=== PATIENT | male | born 1975 | race Caucasian/White ===

== ENCOUNTER 2019-05-17 08:43 | Inpatient (IN) ==
[2019-05-17] MEDS ORDERED: KETOROLAC TROMETHAMINE 30 MG/ML VIAL IV ONE (09:54)
[2019-05-17] MEDS ORDERED: DIATRIZOATE MEGLUMINE, SODIUM 30 ML BTL PO ONE (09:54)
[2019-05-17] MEDS ORDERED: NORMAL SALINE 1,000 ML IV ONE ×3 (09:54→15:55)
--- NOTE | 2019-05-17 10:00 | ERNOTE ---
Abdominal HPI - Narrative Date of Service: 05/17/19 - General Chief Complaint: Abdominal Pain Time Seen by Provider: 05/17/19 09:49 Source: patient Exam Limitations: no limitations - Immun/Allergies/Home Medications Immunizatons: IMMUNIZATION HX Immunizations Up to Date Yes History of Influenza Vaccine No Hx Pneumococcal Vaccination No Allergies/Adverse Reactions: Allergies No Known Allergies Allergy (Verified 02/22/19 14:39) Home Medications: HOME MEDICATIONS ibuprofen 800 mg tablet 800 mg PO TID PRN #90 tab 01/22/19 [Last Taken Unknown] - History of Present Illness Narrative: Patient presents to the ED for low abdominal pain. This started yesterday and has been persistent since. Low abdominal pain, left primarily. No CP or SOB. No nausea or vomiting. Has had a fever. Never had anything like this before. Has a hernia left but this is not specifically tender. No dysuria or hematuria. Has had diarrhea but non-bloody. No vomiting. Nothing seems to make this better or worse. Timing: constant Quality: moderate Activities at Onset: none Modifying Factors - (Improves): Present: other - nothing Modifying Factors - (Worsens): Present: other - nothing Associated Symptoms: Absent: diarrhea-gross blood, nausea, vomiting, shortness of breath Prior Abdominal Problems: Present: none Prior Treatment: Absent: recently seen Review of Systems - Review of Systems Constitutional: Present: fever EYE: Present: no symptoms reported ENT: Absent: sore throat Respiratory: Absent: shortness of breath Cardiology: Absent: chest pain Gastrointestinal/Abdominal: Present: See HPI Genitourinary: Absent: dysuria Neurological: Absent: weakness All Other Systems: All systems neg except as marked Medical History (Last Reviewed 05/17/19 @ 09:58 by John Muñoz MD) Diarrhea in adult patient (Acute) Hyperlipidemia Surgical History: Surgical History (Last Reviewed 05/17/19 @ 09:58 by John Muñoz MD) No pertinent past surgical history Family History: Family History (Last Reviewed 05/17/19 @ 09:58 by John Muñoz MD) Mother Diabetes Father Glaucoma CVA (cerebral vascular accident) Grandmother Cancer Social History: (Last Reviewed 05/17/19 @ 09:58 by John Muñoz MD) Social History: Marital status: lives independently: Yes household members: family number of children: 63 current occupational status: employed Highest education level completed: high school graduate Service: Yes branch: [employer] Tobacco: Smokeless tobacco user: chewing tobacco Alcohol: alcohol intake: current Alcohol type: wine, beer alcohol intake frequency: a few times a week Substance Use: substance use type: does not use Dietary Habits: caffeine: Yes caffeine comment: daily Type: coffee Physical Exam - Physical Exam General Appearance: Present: alert, no apparent distress Head Exam: Present: normal inspection, no evidence of injury Eye Exam: Normal inspection: bilateral, PERRL: bilateral Ears, Nose, Throat: Present: normal ENT inspection Neck: Present: normal inspection Respiratory: Present: no respiratory distress, normal breath sounds, no accessory muscle use, lungs clear Cardiovascular/Chest: Present: regular rate, rhythm, normal peripheral pulses Gastrointestinal/Abdominal: Present: normal bowel sounds, nondistended, soft, other - Diffuse low abdominal tenderness, left greater than rright, no peritoneal signs Male Genitals Exam: Present: normal genitalia, normal prostate, other - there is a small hernia left but this is not tender. No evidence of strangulated or incarcerated hernia. No testicular tenderness. No suggestion of torsion or scrotal mass/tenderness. Back Exam: Absent: CVA tenderness (R), CVA tenderness (L) Extremity Exam: Present: normal inspection, normal range of motion Neurological Exam: Present: alert, no motor/sensory deficits Skin Exam: Present: normal color, warm/dry Progress - Results and Orders Patient's Lab Results:: I have reviewed the patient's lab results. - Vital Signs Patient's Vital Signs:: I have reviewed the patient's vital signs. Vital Signs: Vital Signs 05/17/19 09:02 Temperature 38.1 C H Pulse Rate 81 Respiratory Rate 16 Blood Pressure 149/101 H O2 Sat by Pulse Oximetry 95 - CT/Ultrasound CT/Ultrasound Narrative: I reviewed the official radiology report for CT ABd/Pelvis. - Progress/Reassessment Chief Complaint: Abdominal Pain Progress Note-Subjective: 05/17/19 15:57 Patient had perforated diverticulititis and abnormal cecum. Given IV ABc. I spoke with Dr Guajardo then Dr Gaines. There was a question of who would admit so the patient had a prolonged ED stay. Dr Poole did see the patient at PCP request. Eventually admitted to Dr Guajardo. patient understands. Departure Clinical Impression: Abdominal pain, Diverticulitis, Diverticulitis of intestine with perforation, Abnormal CT of the abdomen - Departure Disposition: Still a patient Condition: Stable
[2019-05-17 10:09] LABS: Hematocrit 44.3 % (42.0-52.0); Mean Corpuscular Hemoglobin 29.1 pg (27-31); Mean Corpuscular Hgb Conc 33.9 g/dl (32-36); Mean Platelet Volume 9.3 fl (8-11.3); Neutrophil # 8.7 K/mm3 (1.3-6.0); Neutrophil % 79.8 % (42-75.0); Platelet Count 216 K/mm3 (150-450); Red Blood Count 5.15 M/mm3 (4.7-6.0); Red Cell Distribution Width 12.3 % (11.5-14.0); White Blood Count 10.9 K/mm3 (4.0-10.5)
[2019-05-17 10:30] LABS: Anion Gap 13.2 mmol/L (6.8-13.8); BUN/Creatinine Ratio 5.9 (9.0-21.6); Bilirubin, Total 0.9 mg/dL (0.0-1.1); Ca. Corrected For Albumin 8.6 mg/dL (8.4-10.2); Calcium * 8.9 mg/dL (7.9-10.9); Carbon Dioxide 28.7 mmol/L (24-32.6); Potassium 3.9 mmol/L (3.4-4.6); Total Protein 7.6 gm/dL (6.2-8.2)
[2019-05-17 12:12] LABS: Urine Bilirubin Negative (NEGATIVE); Urine Blood Negative /ul (NEGATIVE); Urine Ketone Negative (NEGATIVE); Urine Nitrite Negative (NEGATIVE); Urine Protein Negative (NEGATIVE); Urine Specific Gravity 1.015 SP.GR. (1.005-1.030); Urine Urobilinogen Normal (NORMAL)
[2019-05-17 12:30] LABS: Urine Appearance Clear (CLEAR); Urine Color Dark Yellow
[2019-05-17 12:31] LABS: Urine Bacteria None Seen; Urine RBC None Seen /hpf (0-5); Urine WBC None Seen /hpf (0-5)
[2019-05-17] MEDS ORDERED: LEVOFLOXACIN IN DEXTROSE 5 % 750 MG/150 ML BAG IV ONE (14:03)
[2019-05-17] MEDS ORDERED: metroNIDAZOLE/SODIUM CHLORIDE 500 MG/100 ML BAG IV SCH (14:15)
--- NOTE | 2019-05-17 16:28 | CONS ---
HPI - General Date of Service: 05/17/19 Source: patient, RN/MD, RN notes reviewed, old records Exam Limitations: no limitations - History of Present Illness Initial Comments: He began with vague lower abdominal discomfort last evening. The pain got more severe overnight. It hurt to cough removed. He presented to the emergency room today. His white blood cell count is elevated at 10,900. He has an elevated temperature. Timing/Duration: 24 hours Modifying Factors - (Worsens): Reports: movement Modifying Factors - (Improves): Reports: immobilization Associated Symptoms: other - He has felt warm Allergies/Adverse Reactions: Allergies No Known Allergies Allergy (Verified 02/22/19 14:39) Home Medications: Home Medications Medication Instructions Recorded Last Taken ibuprofen 800 mg tablet 800 mg PO TID PRN #90 tab 01/22/19 Unknown Review of Systems - Review of Systems Generalized/Overall Review: Absent: Chills, Fever EENTM: Present: No Symptoms Reported Respiratory: Present: No Symptoms Reported Cardiac: Present: No Symptoms Reported Abdominal: Present: Other - He started with vague lower abdominal pain which localized in the left lower quadrant. Hurts to cough or move Generally his bowels move about 3 times a day depending upon what he eats Genitourinary: Present: No Symptoms Reported Musculoskeletal: Present: No Symptoms Reported Neurological: Present: No Symptoms Reported Skin: Present: No Symptoms Reported Endocrine: Present: No Symptoms Reported Physical Examination - Exam Vital Signs: Vital Signs - Last Taken Temp 38.1 C H 05/17/19 16:07 Pulse 64 05/17/19 16:07 Resp 16 05/17/19 16:07 BP 142/88 H 05/17/19 16:07 Pulse Ox 97 05/17/19 16:07 O2 Oxygen Delivery Method Room Air Constitutional: Present: Alert, Oriented x3, Cooperative, Well developed, Well nourished, Mild distress ENT Exam: Present: normal ENT inspection Eye Exam: bilateral eye: normal inspection Neck: Present: full range of motion, normal inspection Respiratory: Present: no respiratory distress Cardiovascular/Chest: Present: regular rate, rhythm Abdomen: Present: other - His abdomen is protuberant "full" but soft. There is some tympany to percussion. There is some percussion tenderness in the left lower quadrant but not elsewhere in the abdomen. He does have moderate direct tenderness in the left lower quadrant with rebound. 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 There is also a filling defect in the cecum adjacent to the ileocecal valve. - Assessments/Findings (1) Abnormal CT of the abdomen Diagnosis(s): In talking to the patient, his mother had colon cancer at age 59 or 60. Her mother also had colon cancer. The patient's father has had colon cancer as well as one uncle or aunt The finding in the cecum may be related to the ileocecal valve, however with his significant family history of colon cancer he would have been considered for screening colonoscopy at age 39. Discussed this at length with him. He was given pamphlets on colonoscopy and diverticulosis. Would recommend that following discharge he be referred for a colonoscopy in 6 to 8 weeks after complete healing of the diverticulitis. Problem: Acute (2) Diverticulitis of intestine with perforation Diagnosis(s): The diverticulitis is associated with a microperforation. This is retroperitoneal and contained. Would recommend he be kept n.p.o. status except ice chips and any needed p.o. medication with IV hydration. Agree with Levaquin and Flagyl IV. Will follow the patient for daily exams. Would not start clear liquids until the patient is much less tender Would continue IV antibiotics until the patient is pain-free with a normal white blood cell count and benign exam. Would continue outpatient antibiotics for a full 2-week course Problem: Acute
[2019-05-17] MEDS ORDERED: FLU VACC QS2019-20(6MOS UP)/PF 60 MCG/0.5 ML SYRINGE IM ONE (17:00)
--- NOTE | 2019-05-17 17:53 | HP ---
Chief Complaint - Chief Complaint Date of Service: 05/17/19 Time of Service: 16:00 Chief Complaint: Left Lower Quadrant Abdominal Pain History of Present Illness: 43 y/o M with PMHX of Hyperlipidemia not requiring statin therapy presents to the ER with complaints of LLQ abdominal pain x 1 day. Patient states he felt he was coming down with small infection however pain progressively got worse overnight. On arrival to the ER, patient is hypertensive remaining Vital signs are stable. Labs are significant for mild leukocyotsis and CT abd/pelvis demonstrated Diverticulitis with perforation. Received a bolus of NS. On arrival to the floor, patient is resting comfortably. Denies pain or nausea. States last BM and flatus was last night. Discussed management with patient and at bedside. Voiced understanding and are agreeable with plan. Medical History (Last Reviewed 05/17/19 @ 16:22 by Brenda García RN) Diarrhea in adult patient (Acute) Hyperlipidemia Surgical History: Surgical History (Last Reviewed 05/17/19 @ 16:22 by Brenda García RN) No pertinent past surgical history Family History: Family History (Last Reviewed 05/17/19 @ 16:23 by Brenda García RN) Mother Diabetes Father CVA (cerebral vascular accident) Glaucoma Grandmother Cancer Social History: (Last Updated 05/17/19 @ 16:23 by Brenda García RN) Social History: Marital status: lives independently: Yes household members: family number of children: 2 current occupational status: employed Highest education level completed: high school graduate Service: Yes branch: [employer] Tobacco: Smokeless tobacco user: chewing tobacco Alcohol: alcohol intake: current Alcohol type: wine, beer alcohol intake frequency: a few times a week Substance Use: substance use type: does not use Dietary Habits: caffeine: Yes caffeine comment: daily Type: coffee Review Of Systems (GEN) - Review of Systems Generalized/Overall Review: Absent: Weakness, Chills, Fever, Diaphoresis Respiratory: Absent: Shortness of Breath Cardiac: Absent: Chest Pain, Edema Abdominal: Present: Abdominal Pain - LLQ. Absent: Nausea, Vomiting, Constipation Musculoskeletal: Absent: Joint Pain Neurological: Absent: Pre-existing Deficit Skin: Absent: Dryness Immunizations: IMMUNIZATION HX Immunizations Up to Date Yes History of Influenza Vaccine No Hx Pneumococcal Vaccination No Allergies/Adverse Reactions: Allergies Allergy/AdvReac Type Severity Reaction Status Date / Time No Known Allergies Allergy Verified 05/17/19 16:24 Home Medications: HOME MEDICATIONS ibuprofen 800 mg tablet 800 mg PO TID PRN #90 tab 01/22/19 [Last Taken Unknown] Exam - Exam Vital Signs: Vital Signs - Last Taken Temp 36.7 C 05/17/19 16:25 Pulse 71 05/17/19 16:25 Resp 16 05/17/19 16:25 BP 140/91 H 05/17/19 16:25 Pulse Ox 100 05/17/19 16:25 Constitutional: Present: Alert, Oriented x3, Cooperative, Well developed, No distress ENT Exam: Present: hearing grossly normal Eye Exam: bilateral eye: normal inspection, EOMI Neck: Present: non-tender, full range of motion, supple, normal inspection Respiratory: Present: lungs clear, normal breath sounds Cardiovascular/Chest: Present: normal peripheral pulses, regular rate, rhythm, no chest tenderness, no edema, no gallop, no JVD, no murmur Peripheral Pulses: dorsalis-pedis (R): 2+, dorsalis-pedis (L): 2+ Abdomen: Present: Normal bowel sounds, soft, tender - TTP OF LLQ Extremity: Present: normal range of motion, non-tender, normal inspection, no pedal edema, no calf tenderness, normal capillary refill Skin Exam: Present: normal color, warm/dry Neurologic: Present: alert, oriented x 3 Appearance: Present: appropriate appearance Eye contact: Present: cooperative, good eye contact, normal speech Thoughts: Present: normal thought pattern, no apparent hallucination, normal mood /affect Diagnostic Studies: Abnormal Lab Results 05/17/19 05/17/19 Range/Units 09:54 09:54 WBC 10.9 H (4.0-10.5) K/mm3 Neutrophils % 79.8 H (42-75.0) % Lymphocytes % 9.7 L (20-51) % Monocytes % 9.6 H (0.0-9) % Neutrophils # 8.7 H (1.3-6.0) K/mm3 Lymphocytes # 1.05 L (1.5-3.5) k/mm3 BUN/Creatinine Ratio 5.9 L (9.0-21.6) Laboratory Results WBC 10.9 K/mm3 (4.0-10.5) H 05/17/19 09:54 RBC 5.15 M/mm3 (4.7-6.0) 05/17/19 09:54 Hgb 15.0 gm/dL (13.5-18.0) 05/17/19 09:54 Hct 44.3 % (42.0-52.0) 05/17/19 09:54 MCV 86.0 fl (78-100) 05/17/19 09:54 MCH 29.1 pg (27-31) 05/17/19 09:54 MCHC 33.9 g/dl (32-36) 05/17/19 09:54 RDW 12.3 % (11.5-14.0) 05/17/19 09:54 Plt Count 216 K/mm3 (150-450) 05/17/19 09:54 MPV 9.3 fl (8-11.3) 05/17/19 09:54 Immature Gran % (Auto) 0.20 % (0.001-0.429) 05/17/19 09:54 Immature Gran # (Auto) 0.02 K/mm3 (0.000-0.0310) 05/17/19 09:54 Neutrophils % 79.8 % (42-75.0) H 05/17/19 09:54 Lymphocytes % 9.7 % (20-51) L 05/17/19 09:54 Monocytes % 9.6 % (0.0-9) H 05/17/19 09:54 Eosinophils % 0.4 % (0.0-3.0) 05/17/19 09:54 Basophils % 0.3 % (0.0-1.0) 05/17/19 09:54 Nucleated RBC % 0.0 k/mm3 (0-1) 05/17/19 09:54 Neutrophils # 8.7 K/mm3 (1.3-6.0) H 05/17/19 09:54 Lymphocytes # 1.05 k/mm3 (1.5-3.5) L 05/17/19 09:54 Monocytes # 1.0 k/mm3 (0.0-1.0) 05/17/19 09:54 Eosinophils # 0.0 k/mm3 (0.0-0.7) 05/17/19 09:54 Absolute Basophils 0.0 k/mm3 (0.0-0.1) 05/17/19 09:54 Sodium 139 mmol/L (132-142) 05/17/19 09:54 Plasma Sodium 139 mmol/L (130-142) 05/17/19 09:54 Potassium 3.9 mmol/L (3.4-4.6) 05/17/19 09:54 Chloride 101 mmol/L (97-106) 05/17/19 09:54 Carbon Dioxide 28.7 mmol/L (24-32.6) 05/17/19 09:54 Anion Gap 13.2 mmol/L (6.8-13.8) 05/17/19 09:54 BUN 6 mg/dL (6-23) D 05/17/19 09:54 Creatinine 1.02 mg/dL (0.4-1.4) 05/17/19 09:54 Est GFR (Non-Af Amer) 84 mL/min (60-130) 05/17/19 09:54 BUN/Creatinine Ratio 5.9 (9.0-21.6) L 05/17/19 09:54 Random Glucose 110 mg/dL (70-110) 05/17/19 09:54 Calcium 8.9 mg/dL (7.9-10.9) 05/17/19 09:54 Calcium Adj for Albumin 8.6 mg/dL (8.4-10.2) 05/17/19 09:54 Total Bilirubin 0.9 mg/dL (0.0-1.1) 05/17/19 09:54 AST 15 U/L (0-48) 05/17/19 09:54 ALT 19 U/L (19-67) 05/17/19 09:54 Alkaline Phosphatase 86 U/L (50-170) 05/17/19 09:54 Total Protein 7.6 gm/dL (6.2-8.2) 05/17/19 09:54 Albumin 4.0 gm/dl (3.4-5.0) 05/17/19 09:54 Lipase 93 U/L (73-393) 05/17/19 09:54 Urine Color Dark yellow 05/17/19 11:56 Urine Appearance Clear (CLEAR) 05/17/19 11:56 Urine pH 6.0 pH (5.0-7.0) 05/17/19 11:56 Ur Specific [place] 1.015 SP.GR. (1.005-1.030) 05/17/19 11:56 Urine Protein Negative mg/dL (NEGATIVE) 05/17/19 11:56 Urine Glucose (UA) Negative mg/dL (NEGATIVE) 05/17/19 11:56 Urine Ketones Negative mg/dL (NEGATIVE) 05/17/19 11:56 Urine Blood Negative /ul (NEGATIVE) 05/17/19 11:56 Urine Nitrate Negative (NEGATIVE) 05/17/19 11:56 Urine Bilirubin Negative mg/dl (NEGATIVE) 05/17/19 11:56 Urine Urobilinogen Normal EU/dl (NORMAL) 05/17/19 11:56 Ur Leukocyte Esterase Negative /ul (NEGATIVE) 05/17/19 11:56 Urine RBC None seen /hpf (0-5) 05/17/19 11:56 Urine WBC None seen /hpf (0-5) 05/17/19 11:56 Ur Epithelial Cells None seen /hpf (0-5) 05/17/19 11:56 Urine Bacteria None seen (NONE) 05/17/19 11:56 Urine Culture Comments No culture indicated 05/17/19 11:56 Group A Strep Rapid Negative (NEGATIVE) 05/17/19 09:00 Assessment/Plan - Narrative Narrative: - Assessment/Plan (1) Diverticulitis of intestine with perforation * General Surgery Consulted, Dr. Poole on board * NPO till further evaluation * mIVFs @ 125 ml * IV Rocephin 2gm & IV Flagyl 500mg Q8H * Zofran 4mg IV PRN for nausea * Morphine 1 mg Q6H PRN for pain (2) Hypertension * Labetalol 5 mg IV FEN: mIVFs @ 125mL/hr, NPO till further evaluation DVT PPX: SCDs whilst in bed CODE STATUS: Full Code Disposition: - Will reevaluate in the morning - Appreciate recommendations from general surgery - Assessment/Plan (1) Diverticulitis of intestine with perforation Problem: Acute Qualifiers: Diverticulitis site: large intestine Diverticulitis bleeding: without bleeding Qualified Code(s): K57.20 - Diverticulitis of large intestine with perforation and abscess without bleeding (2) Hypertension Problem: Acute Qualifiers: Hypertension type: essential hypertension Qualified Code(s): I10 - Essential (primary) hypertension
[2019-05-17] MEDS ORDERED: ONDANSETRON HCL/PF 2 MG/ML VIAL IV PRN (18:00)
[2019-05-17] MEDS ORDERED: LABETALOL HCL 5 MG/ML VIAL IV ONE (18:01)
[2019-05-17] MEDS ORDERED: MORPHINE SULFATE 4 MG/ML SYRG IV PRN (18:01)
[2019-05-17] MEDS ORDERED: KETOROLAC TROMETHAMINE 15 MG/ML VIAL IV PRN (18:03)
[2019-05-17] MEDS: metroNIDAZOLE/SODIUM CHLORIDE 500 MG/100 ML BAG IV SCH (23:27)
[2019-05-18] MEDS ORDERED: NORMAL SALINE 1,000 ML IV ONE (01:00)
[2019-05-18 06:44] LABS: Hematocrit 39.4 % (42.0-52.0); Hemoglobin 13.2 gm/dL (13.5-18.0); Mean Cell Volume 87.4 fl (78-100); Mean Corpuscular Hemoglobin 29.3 pg (27-31); Mean Corpuscular Hgb Conc 33.5 g/dl (32-36); Mean Platelet Volume 9.8 fl (8-11.3); Neutrophil # 4.8 K/mm3 (1.3-6.0); Neutrophil % 69.4 % (42-75.0); Platelet Count 171 K/mm3 (150-450); Red Blood Count 4.51 M/mm3 (4.7-6.0); Red Cell Distribution Width 12.2 % (11.5-14.0); White Blood Count 6.9 K/mm3 (4.0-10.5)
[2019-05-18] MEDS: metroNIDAZOLE/SODIUM CHLORIDE 500 MG/100 ML BAG IV SCH ×3 (06:49→23:09)
[2019-05-18 07:01] LABS: Anion Gap 13.4 mmol/L (6.8-13.8); BUN/Creatinine Ratio 10.4 (9.0-21.6); Bilirubin, Total 0.7 mg/dL (0.0-1.1); Ca. Corrected For Albumin 8.6 mg/dL (8.4-10.2); Calcium * 8.1 mg/dL (7.9-10.9); Carbon Dioxide 27.4 mmol/L (24-32.6); Potassium 3.8 mmol/L (3.4-4.6); Total Protein 6.5 gm/dL (6.2-8.2)
--- NOTE | 2019-05-18 09:16 | PN ---
Subjective - Date and Time Seen Date: 05/18/19 Time: 09:07 Subjective Narrative: He was admitted with sigmoid diverticulitis with a localized perforation. He has received Rocephin and Flagyl. Objective Objective Narrative: His vital signs have remained normal. White blood cell count has decreased to normal. He has less left lower quadrant pain when he is still, however he still has pain when he coughs laughs or moves. He had loose bowel movements after the p.o. CT contrast - Review of Systems Generalized/Overall Review: Denies: Chills, Fever EENTM: Reports: No Symptoms Reported Respiratory: Denies: Cough, Shortness of Breath Cardiac: Denies: Chest Pain, Palpitations Abdominal: Reports: Other - He still feels a little distended, however has had a liquid bowel movement Genitourinary Symptoms: Reports: No Symptoms Reported Musculoskeletal Complaints: Reports: No Symptoms Reported Neurological: Reports: No Symptoms Reported Skin: Reports: No Symptoms Reported - Vitals Vitals: Last Vital Signs Temp 36.7 C 05/18/19 06:33 Pulse 61 05/18/19 06:33 Resp 18 05/18/19 06:33 BP 130/83 05/18/19 06:33 Pulse Ox 98 05/18/19 06:33 - Abnormal Lab Findings Abnormal Lab Findings: Abnormal Lab Results 05/17/19 05/17/19 05/18/19 Range/Units 09:54 09:54 06:41 WBC 10.9 H (4.0-10.5) K/mm3 RBC 4.51 L (4.7-6.0) M/mm3 Hgb 13.2 L (13.5-18.0) gm/dL Hct 39.4 L (42.0-52.0) % Neutrophils % 79.8 H (42-75.0) % Lymphocytes % 9.7 L 18.0 L (20-51) % Monocytes % 9.6 H 10.9 H (0.0-9) % Neutrophils # 8.7 H (1.3-6.0) K/mm3 Lymphocytes # 1.05 L 1.24 L (1.5-3.5) k/mm3 BUN/Creatinine Ratio 5.9 L (9.0-21.6) ALT (19-67) U/L Albumin (3.4-5.0) gm/dl 05/18/19 Range/Units 06:41 WBC (4.0-10.5) K/mm3 RBC (4.7-6.0) M/mm3 Hgb (13.5-18.0) gm/dL Hct (42.0-52.0) % Neutrophils % (42-75.0) % Lymphocytes % (20-51) % Monocytes % (0.0-9) % Neutrophils # (1.3-6.0) K/mm3 Lymphocytes # (1.5-3.5) k/mm3 BUN/Creatinine Ratio (9.0-21.6) ALT 15 L (19-67) U/L Albumin 3.0 L (3.4-5.0) gm/dl - Exam Constitutional: Present: Alert, Oriented x3, Well developed, Well nourished, No distress - Does wince with cough or movement ENT Exam: Present: normal ENT inspection Neck: Present: full range of motion, normal inspection Respiratory: Present: no respiratory distress Cardiovascular/Chest: Present: regular rate, rhythm Abdomen: Present: other - He is still distended, however soft. No percussion tenderness today. He does have deep left lower quadrant direct tenderness with some mild rebound. 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 He has a very strong family history of colon cancer. The abnormality in the cecum needs to be directly visualized, and he needs to be screened for polyps. (2) Diverticulitis of intestine with perforation Problem: Acute Qualifiers: Diverticulitis site: large intestine Diverticulitis bleeding: without bleeding Qualified Code(s): K57.20 - Diverticulitis of large intestine with perforation and abscess without bleeding Narrative: He has complicated diverticulitis (perforation with localized abscess). This collection is not amenable to percutaneous drainage. He therefore requires IV antibiotics until resolution of his pain and tenderness. This would typically involve 3 to 5 days of inpatient treatment. He has improved clinically, therefore would liberalize to a clear liquid diet. Would not advance his diet however until his pain and tenderness are further improved. We will continue to follow the patient
--- NOTE | 2019-05-18 13:21 | PN ---
Subjective - Date and Time Seen Date: 05/18/19 Time: 08:20 Subjective Narrative: No acute events overnight. Pain well controlled. Patient is hungry and requesting diet. Advised will discuss with Dr. Poole before resuming diet. Objective - Review of Systems Generalized/Overall Review: Denies: Weakness Respiratory: Denies: Cough, Shortness of Breath Cardiac: Denies: Chest Pain Abdominal: Reports: Abdominal Pain - LLQ. Denies: Nausea, Vomiting Genitourinary Symptoms: Denies: Burning, Itching Musculoskeletal Complaints: Denies: Joint Pain, Back Pain, Joint Swelling Neurological: Denies: Pre-existing Deficit Skin: Denies: Dryness - Vitals Vitals: Last Vital Signs Temp 36.7 C 05/18/19 10:22 Pulse 64 05/18/19 10:22 Resp 18 05/18/19 10:22 BP 131/89 05/18/19 10:22 Pulse Ox 97 05/18/19 10:22 - Abnormal Lab Findings Abnormal Lab Findings: Abnormal Lab Results 05/18/19 05/18/19 Range/Units 06:41 06:41 RBC 4.51 L (4.7-6.0) M/mm3 Hgb 13.2 L (13.5-18.0) gm/dL Hct 39.4 L (42.0-52.0) % Lymphocytes % 18.0 L (20-51) % Monocytes % 10.9 H (0.0-9) % Lymphocytes # 1.24 L (1.5-3.5) k/mm3 ALT 15 L (19-67) U/L Albumin 3.0 L (3.4-5.0) gm/dl - Exam Constitutional: Present: Alert, Oriented x3, Cooperative, Well developed, Well nourished, No distress ENT Exam: Present: hearing grossly normal Neck: Present: non-tender, full range of motion, supple Respiratory: Present: lungs clear, normal breath sounds, no respiratory distress, no accessory muscle use Cardiovascular/Chest: Present: normal peripheral pulses, regular rate, rhythm, no chest tenderness, no edema, no gallop, no JVD, no murmur Abdomen: Present: Normal bowel sounds, soft, tender - TTP of LLQ Extremity: Present: normal range of motion, non-tender, normal inspection, no pedal edema, no calf tenderness, normal capillary refill Skin Exam: Present: normal color, warm/dry Neurologic: Present: alert, oriented x 3 Appearance: Present: appropriate appearance Eye contact: Present: cooperative Thoughts: Present: normal thought pattern Assessment/Plan Plan Narrative: Assessment/Plan 43 year old Male admitted for complicated diverticulitis with perforation of the bowel Complicated Diverticulitis with perforation of the bowels - Continue IV Rocephin 2 gm Q24H and IV Flagyl 500 mg Q8H - D/C mIVFs and Saline lock - Trial with clear liquid diet, do not advance diet - Will continue to monitor - Pain control with Toradol 15 mg Q6-8 PRN - Zofran 4 mg IV q6-8h PRN for nausea FEN: Clear liquid diet DVT PPX: SCD's CODE STATUS: FULL CODE Disposition: - Will continue to monitor - Revaluate in AM and consider transitioning to PO antibiotics - Will consider in AM to advance diet - Problems/Diagnosis (1) Diverticulitis of large intestine with complication Problem: Acute
[2019-05-19 05:22] LABS: Hematocrit 36.4 % (42.0-52.0); Hemoglobin 12.2 gm/dL (13.5-18.0); Mean Cell Volume 87.3 fl (78-100); Mean Corpuscular Hemoglobin 29.3 pg (27-31); Mean Corpuscular Hgb Conc 33.5 g/dl (32-36); Mean Platelet Volume 9.2 fl (8-11.3); Neutrophil # 2.7 K/mm3 (1.3-6.0); Neutrophil % 54.7 % (42-75.0); Platelet Count 172 K/mm3 (150-450); Red Blood Count 4.17 M/mm3 (4.7-6.0); Red Cell Distribution Width 12.4 % (11.5-14.0); White Blood Count 4.9 K/mm3 (4.0-10.5)
[2019-05-19 05:41] LABS: Albumin * 2.8 gm/dl (3.4-5.0); Anion Gap 8.5 mmol/L (6.8-13.8); BUN/Creatinine Ratio 6.3 (9.0-21.6); Bilirubin, Total 0.3 mg/dL (0.0-1.1); Ca. Corrected For Albumin 8.7 mg/dL (8.4-10.2); Calcium * 8.1 mg/dL (7.9-10.9); Carbon Dioxide 29.3 mmol/L (24-32.6); Potassium 3.8 mmol/L (3.4-4.6)
[2019-05-19] MEDS: metroNIDAZOLE/SODIUM CHLORIDE 500 MG/100 ML BAG IV SCH (07:02)
--- NOTE | 2019-05-19 09:26 | DS ---
Date of Discharge:: 05/19/19 Hospital Course: Reji Chan is a 43 y/o M with PMHX of Hyperlipidemia not requiring statin therapy who was admitted to the hospital on 05/17/2019 because of the chief complaint of LLQ abdominal pain x 1 day. The patient stated he felt he was coming down with small infection however pain progressively got worse overnight. On arrival to the ER, patient was hypertensive and febrile with a temp of 38.6. The rest of his vital signs stable. He is labs were significant for mild leukocyotsis and CT abd/pelvis demonstrated Diverticulitis with perforation. He received a bolus of NS and was admitted for further evaluation and treatment. On arrival to the floor, patient is resting comfortably. He was kept n.p.o. and started on IV fluids and IV antibiotics. He has been afebrile for the last 48 hours and his white blood cell count has normalized in the last 48 hours as well. He was started on clear liquids and progressed as tolerated. He has made bowel movement. Dr. Poole and is in the room and and he says the patient is stable to be discharge. He will need a follow-up colonoscopy in about 6 weeks. He already has an appointment with the [facility] on May 24, 2019. He will follow-up with Dr. Guajardo the week after. He will stay on a low fiber diet for now. Procedures Performed: none Results and Findings: Lab Pending Results 05/17/19 09:00: Group A Strep Rapid Negative 05/17/19 09:54: WBC 10.9 H, RBC 5.15, Hgb 15.0, Hct 44.3, MCV 86.0, MCH 29.1, MCHC 33.9, RDW 12.3, Plt Count 216, MPV 9.3, Immature Gran % (Auto) 0.20, Immature Gran # (Auto) 0.02, Neutrophils % 79.8 H, Lymphocytes % 9.7 L, Monocytes % 9.6 H, Eosinophils % 0.4, Basophils % 0.3, Nucleated RBC % 0.0, Neutrophils # 8.7 H, Lymphocytes # 1.05 L, Monocytes # 1.0, Eosinophils # 0.0, Absolute Basophils 0.0 05/17/19 09:54: Sodium 139, Plasma Sodium 139, Potassium 3.9, Chloride 101, Carbon Dioxide 28.7, Anion Gap 13.2, BUN 6 D, Creatinine 1.02, Est GFR (Non-Af Amer) 84, BUN/Creatinine Ratio 5.9 L, Random Glucose 110, Calcium 8.9, Calcium Adj for Albumin 8.6, Total Bilirubin 0.9, AST 15, ALT 19, Alkaline Phosphatase 86, Total Protein 7.6, Albumin 4.0, Lipase 93 05/17/19 11:56: Urine Color Dark yellow, Urine Appearance Clear, Urine pH 6.0, Ur Specific [place] 1.015, Urine Protein Negative, Urine Glucose (UA) Negative, Urine Ketones Negative, Urine Blood Negative, Urine Nitrate Negative, Urine Bilirubin Negative, Urine Urobilinogen Normal, Ur Leukocyte Esterase Negative, Urine RBC None seen, Urine WBC None seen, Ur Epithelial Cells None seen, Urine Bacteria None seen, Urine Culture Comments No culture indicated 05/18/19 06:41: WBC 6.9 D, RBC 4.51 L, Hgb 13.2 L, Hct 39.4 L, MCV 87.4, MCH 29.3, MCHC 33.5, RDW 12.2, Plt Count 171, MPV 9.8, Immature Gran % (Auto) 0.10, Immature Gran # (Auto) 0.01, Neutrophils % 69.4, Lymphocytes % 18.0 L, Monocytes % 10.9 H, Eosinophils % 1.2, Basophils % 0.4, Nucleated RBC % 0.0, Neutrophils # 4.8, Lymphocytes # 1.24 L, Monocytes # 0.8, Eosinophils # 0.1, Absolute Basophils 0.0 05/18/19 06:41: Sodium 141, Plasma Sodium 141, Potassium 3.8, Chloride 104, Carbon Dioxide 27.4, Anion Gap 13.4, BUN 10 D, Creatinine 0.96, Est GFR (Non-Af Amer) 90, BUN/Creatinine Ratio 10.4, Random Glucose 87, Calcium 8.1, Calcium Adj for Albumin 8.6, Total Bilirubin 0.7, AST 13, ALT 15 L, Alkaline Phosphatase 69, Total Protein 6.5, Albumin 3.0 L 05/19/19 05:15: WBC 4.9 D, RBC 4.17 L, Hgb 12.2 L, Hct 36.4 L, MCV 87.3, MCH 29.3, MCHC 33.5, RDW 12.4, Plt Count 172, MPV 9.2, Immature Gran % (Auto) 0.20, Immature Gran # (Auto) 0.01, Neutrophils % 54.7, Lymphocytes % 28.6, Monocytes % 13.6 H, Eosinophils % 2.5, Basophils % 0.4, Nucleated RBC % 0.0, Neutrophils # 2.7, Lymphocytes # 1.39 L, Monocytes # 0.7, Eosinophils # 0.1, Absolute Basophils 0.0 05/19/19 05:15: Sodium 140, Plasma Sodium 140, Potassium 3.8, Chloride 106, Carbon Dioxide 29.3, Anion Gap 8.5, BUN 6, Creatinine 0.96, Est GFR (Non-Af Amer) 90, BUN/Creatinine Ratio 6.3 L, Random Glucose 103, Calcium 8.1, Calcium Adj for Albumin 8.7, Total Bilirubin 0.3, AST 15, ALT 14 L, Alkaline Phosphatase 58, Total Protein 6.0 L, Albumin 2.8 L Discharge Location: Home Disposition: Home self-care Condition: Stable Discharge Activity: Activity as tolerated Discharge Diet: Low Fiber Referrals: Jeanine Guajardo MD [Primary Care Provider] - Additional Patient Instructions (free text): [facility] Follow upwith Latha Landrum the next week. Prescriptions (Any new or edited meds): Ciprofloxacin HCl [Cipro] 500 mg PO BID #14 tab Transmission Status: Pending to [place], [place] metroNIDAZOLE [Flagyl] 500 mg PO Q8H 7 Days #21 tab Transmission Status: Pending to [place], [place] Complete Home Medications List: Complete Home Medication List: ibuprofen 800 mg tablet 800 mg PO TID PRN #90 tab 01/22/19 Ciprofloxacin HCl [Cipro] 500 mg PO BID #14 tab 05/19/19 metroNIDAZOLE [Flagyl] 500 mg PO Q8H 7 Days #21 tab 05/19/19
--- NOTE | 2019-05-19 09:49 | PN ---
Subjective - Date and Time Seen Date: 05/19/19 Time: 09:39 Subjective Narrative: He presented to the emergency room with a 12-hour history of abdominal pain. He was found to have left lower quadrant tenderness, elevated white blood cell count, and CT scan evidence of sigmoid diverticulitis with a localized contained perforation. He was admitted and placed on IV antibiotics. Objective Objective Narrative: His vital signs have remained normal. His white blood cell count has returned to normal. His abdominal pain has all but resolved and he no longer has significant left lower quadrant tenderness. He is tolerating regular diet and has stooled. - Review of Systems Generalized/Overall Review: Denies: Chills, Fever EENTM: Reports: No Symptoms Reported Respiratory: Reports: No Symptoms Reported Cardiac: Reports: No Symptoms Reported Abdominal: Reports: Other - Currently denies pain or significant tenderness Musculoskeletal Complaints: Reports: No Symptoms Reported Neurological: Reports: No Symptoms Reported Skin: Reports: No Symptoms Reported - Vitals Vitals: Last Vital Signs Temp 36.8 C 05/19/19 08:00 Pulse 54 L 05/19/19 08:00 Resp 16 05/19/19 08:00 BP 125/69 05/19/19 08:00 Pulse Ox 96 05/19/19 08:00 - Abnormal Lab Findings Abnormal Lab Findings: Abnormal Lab Results 05/19/19 05/19/19 Range/Units 05:15 05:15 RBC 4.17 L (4.7-6.0) M/mm3 Hgb 12.2 L (13.5-18.0) gm/dL Hct 36.4 L (42.0-52.0) % Monocytes % 13.6 H (0.0-9) % Lymphocytes # 1.39 L (1.5-3.5) k/mm3 BUN/Creatinine Ratio 6.3 L (9.0-21.6) ALT 14 L (19-67) U/L Total Protein 6.0 L (6.2-8.2) gm/dL Albumin 2.8 L (3.4-5.0) gm/dl - Exam Constitutional: Present: Alert, Oriented x3, Cooperative, Well developed, No distress ENT Exam: Present: normal ENT inspection Neck: Present: normal inspection Respiratory: Present: no respiratory distress Cardiovascular/Chest: Present: regular rate, rhythm Abdomen: Present: other - Denies abdominal pain or tenderness currently /Rectal: Present: Exam deferred Extremity: Present: normal range of motion, normal inspection Skin Exam: Present: normal color 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 He gets some of his care at the [facility], and he has an appointment there later this week. He should inquire about referral for a colonoscopy if he wishes to have it done locally. He was given our office phone and fax numbers (2) Diverticulitis of intestine with perforation Problem: Acute Qualifiers: Diverticulitis site: large intestine Diverticulitis bleeding: without bleeding Qualified Code(s): K57.20 - Diverticulitis of large intestine with perforation and abscess without bleeding
[2019-05-19 10:03] VITALS: BP 129/87
== END 2019-05-19 10:00 | disposition home or self-care (01) | DRG 392 ==
LOC: ER 08:43 → MS 08:43
PROVIDERS: ADMIT Family Medicine; ATTEND Family Medicine
CPT/HCPCS: 36415; 74177; 80053; 81001; 83690; 85025; 87081; 87430; 90471; 90686; 96361; 96365; 96366; 96367; 96375; 96376; 99285; G0378; Q9963; Q9967

== ENCOUNTER 2020-03-04 09:20 | Inpatient (IN) ==
[~2020-03-04 09:20] MED LIST: BUPIVACAINE HCL/EPINEPHRINE 50 ML VIAL IJ PRN; CEFOXITIN SODIUM 2 GM in DEXTROSE 5 % IN WATER 100 ML IV PRN
[2020-03-04] MEDS: RINGER'S SOLUTION,LACTATED 1,000 ML IV PRN ×6 (09:50→21:46)
--- NOTE | 2020-03-04 10:16 | ANES ---
Anesthesia Pre Procedure Eval HOME MEDICATIONS NK 03/04/20 [Last Taken Unknown] Allergies/Adverse Reactions: Allergies Allergy/AdvReac Type Severity Reaction Status Date / Time No Known Allergies Allergy Verified 02/15/20 11:06 - Planned Procedure Planned Procedure: RT Colon Resection Medication List Reviewed:: Yes Allergies Verified: Yes Medical History (Last Reviewed 03/04/20 @ 10:15 by John Silva CRNA) Diarrhea in adult patient (Resolved) Hyperlipidemia Surgical History (Last Reviewed 03/04/20 @ 10:15 by John Silva CRNA) History of colonoscopy Onset Date: 02/06/20 02/06/20 [place]-tubulovillous adenoma (large base) Family History (Last Reviewed 03/04/20 @ 10:15 by John Silva CRNA) Mother Diabetes Father CVA (cerebral vascular accident) Glaucoma Agent orange exposure Grandmother Cancer maternal-colon ca-dx age 59 Sister Alive and well 2 sisters Brother Alive and well 1 brother - Family Anesthesia History Family History:: no untoward family reactions to anesthesia - Airway/Neck/Teeth Within Normal Limits:: Yes Teeth Condition: intact Neck Exam: full range of motion Mallampatti Score: 2 Thyromental (T-M) distance: > 6 cm Mandibulo Hyoid distance: > 3 cm - Respiratory Smoking Status: Never smoker Sleep Apnea currently treated: No Sleep Apnea by current assessment: No Comments:: chews tobacco - Cardiovascular Tolerate Activity: Good Heart Sounds: S1 & S2, Regular - Gastrointestinal NPO since: MN - Anesthesia Assessment and Plan ASA Class: PS, II Anesthesia Type Plan: General ET - epidural cath for postop analgesia Planned difficult intubation/equipment available: No
[2020-03-04] MEDS ORDERED: PROCHLORPERAZINE EDISYLATE 5 MG/ML VIAL IV PRN (11:38)
[2020-03-04] MEDS ORDERED: NALOXONE HCL 0.4 MG/ML VIAL IV PRN (11:38)
[2020-03-04] MEDS ORDERED: diphenhydrAMINE HCL 50 MG/ML VIAL IV PRN (11:38)
[2020-03-04] MEDS ORDERED: ONDANSETRON HCL/PF 2 MG/ML VIAL IV PRN (11:38)
[2020-03-04] MEDS ORDERED: HYDROmorphone HCL 2 MG/ML VIAL IV PRN (11:38)
[2020-03-04] MEDS ORDERED: fentaNYL CITRATE/PF 50 MCG/ML AMPUL ONE (11:44)
[2020-03-04] MEDS ORDERED: LIDOCAINE HCL 20 ML VIAL ONE (11:44)
[2020-03-04] MEDS ORDERED: NEOSTIGMINE METHYLSULFATE 1 MG/ML VIAL ONE (11:45)
[2020-03-04] MEDS ORDERED: ONDANSETRON HCL/PF 2 MG/ML VIAL ONE (11:45)
[2020-03-04] MEDS ORDERED: GLYCOPYRROLATE 0.2 MG/ML VIAL ONE (11:45)
[2020-03-04] MEDS ORDERED: SUCCINYLCHOLINE CHLORIDE 20 MG/ML VIAL ONE (11:45)
[2020-03-04] MEDS ORDERED: ROCURONIUM BROMIDE 10 MG/ML VIAL ONE (11:45)
[2020-03-04] MEDS ORDERED: PROPOFOL VIAL IV ONE (11:45)
[2020-03-04] MEDS ORDERED: MIDAZOLAM HCL/PF 5 MG/ML VIAL ONE (11:46)
[2020-03-04] MEDS: BUPIVACAINE HCL/0.9 % NACL/PF 250 ML EP PRN (13:30)
[2020-03-04] MEDS ORDERED: MUPIROCIN 22 APPL TUBE TP ONE (14:16)
--- NOTE | 2020-03-04 14:51 | ANES ---
Post Anesthesia Discharge - Transfer of Care Transfer of Care handoff given to nurse: Yes - Discharge from PACU Discharge from PACU when meets criteria: Yes - Comfortable in PACU.
[2020-03-04] MEDS: PANTOPRAZOLE SODIUM 40 MG in NORMAL SALINE 100 ML IV SCH (15:31)
--- NOTE | 2020-03-04 16:26 | ANES ---
Post Anesthesia Assessment - Vital Signs Vitals: Last Vital Signs Temp 36.4 C 03/04/20 15:34 Pulse 53 L 03/04/20 16:00 Resp 16 03/04/20 16:00 BP 120/64 03/04/20 16:00 Pulse Ox 97 03/04/20 16:00 Airway Patency: Normal - Mental Status Level Of Consciousness: Awake - Pain Level Pain Score: 0 - N/V Assessment Nausea/Vomiting Presence: None Dehydration:: No
--- NOTE | 2020-03-04 16:31 | ANES ---
Anesthesia Procedure Note Procedure Note: ANESTHESIA PROCEDURE NOTE Date of Procedure: 03/04/2020. Time of procedure: 1135. Performed by: Joe Jaquez CRNA Lead Sales Consultant: None. Preprocedure diagnosis: Tubulovillous adenoma of colon. Post procedure diagnosis: Same. Procedure: Insertion of thoracic epidural for postoperative analgesia. Indications: The patient is a 44-year-old male requesting thoracic epidural for postoperative pain management related to right colon resection. Findings: See below. Details of the procedure: The patient was placed in a sitting position. DuraPrep as well as Betadine swabs X3 was applied to the patient's back. Patient was then draped in a sterile fashion. Lidocaine 1% was infiltrated to the skin and subcutaneous tissues at the level of the T10-11 interspace. The epidural space was identified using a 18-gauge Tuohy needle with [id number] technique. Epidural catheter was inserted to a depth of 10 centimeters at skin. Negative test dose was elicited using 3 mL of 1.5% preservative-free lidocaine plus epinephrine 1 200,000. The epidural catheter was then taped and secured in place. EBL: Minimal. Fluids: N/A. Specimen: N/A. Post procedure condition: The patient tolerated the procedure well. No complications were noted. Thank you for this consultation. Joe Jaquez CRNA
--- NOTE | 2020-03-04 16:39 | OR ---
Operative Report - Dictated Report Narrative: OPERATIVE REPORT DATE OF OPERATION: 03/04/2020 PREOPERATIVE DIAGNOSIS: Large tubulovillous adenoma of the cecum POSTOPERATIVE DIAGNOSIS: Same (pathology pending) OPERATION: Right colon resection SURGEON: Deuce Poole MD ANESTHESIA: General endotracheal/epidural Joe Jaquez CRNA INDICATIONS FOR PROCEDURE: The patient is a 44-year-old male who was initially seen in consultation when he was admitted in April 2019 with diverticulitis and microperforation. He was advised colonoscopy in 6 to 8 weeks after resolution. In August he had an additional episode of diverticulitis which was treated with antibiotics and liquid diet. He was originally seen in the office to schedule colonoscopy on 01/11/2020. At colonoscopy on 02/06/2020 he was found to have a very large cecal tubulovillous adenoma. The polyp did not appear amenable to endoscopic resection. The patient also had significant sigmoid diverticular disease. He was seen back in the office on 02/15/2020 to discuss surgery. He has undergone an outpatient mechanical and antibiotic bowel prep and is brought for right colon resection. The patient's family history is remarkable for cancer of the colon in his grandmother in her 50s. His mother is in her 60s and has had polyps removed. FINDINGS: Very large polyp in the cecum (pathology pending). Signed of previous inflammation in the abdomen evidenced by greater omental adhesions. NARRATIVE OF PROCEDURE: The patient was identified preoperatively and prior to the administration of anesthetic a multidisciplinary timeout was observed. The patient was placed supine, SCDs were applied, 2 g of IV Mefoxin administered. The patient was then placed in a sitting position and an epidural catheter placed. The patient was returned to the supine position and general endotracheal anesthetic administered. A Cordova catheter was placed. The patient's abdomen was prepped with Betadine solution in the midline isolated with 4 sterile towels the remainder the patient was covered with a sterile disposable drape. A midline surgical incision was made skirting to the right of the umbilicus. Dissection was carried through subcutaneous tissue until the fascia of the linea alba was encountered. This was incised. The peritoneum was then elevated and incised to allow entry into the abdomen under direct vision. Manual and visual exploration of the abdomen was then performed. There was a mass palpable in the cecum. The small bowel appeared mobile and normal. There were adhesions of the greater omentum to the anterior abdominal wall in the upper abdomen precluding palpation of the stomach proper. A Bookwalter self- retaining retractor was placed to provide exposure of the right side of the abdomen. The lateral peritoneal attachments of the cecum and ascending colon were divided allowing mobilization of the right colon medially until the terminal ileum and right colon could be brought out on the anterior abdominal wall. The polyp in the cecum was readily palpable. The appendix appeared normal. A point was chosen in the terminal ileum proximal to the ileocecal valve and the bowel divided with a LISA stapling device. The stapled ends were treated with Betadine. A point in the ascending colon was then chosen well pr oximal to the cecum and divided with a LISA stapling device. The stapled ends were treated with free Betadine. The intervening wedge wedge of attendant mesentery was then divided by use of the LigaSure device. The specimen was delivered intact to the back table for later inspection. The transected terminal ileum was placed in [id number] fashion with the ascending colon and secured with a tag suture of 3-0 silk. Enterotomies were made in the antimesenteric ends of the staple lines and a functioning [id number] anastomosis created with an application of the LISA stapling device. The inter ior of the anastomosis was seen to be of good caliber and hemostatic. The resulting common enterotomy was closed with a TA 60 stapling device. The resulting staple line was then covered with interrupted serosal sutures of 3-0 silk. The intervening mesenteric defect was then approximated with a running suture of 2-0 chromic. The anastomosis was tested and found to be of good caliber with free passage of small bowel content. After receiving a correct sponge needle and instrument count attention was turned to closing the abdomen. The anastomosed bowel was placed in the right upper quadrant and the small bowel returned to an anatomic position. The fascia and peritoneum were then approximated with a single layer of interrupted sutures of #1 Vicryl. Subcutaneous space was obliterated with interrupted sutures of 2-0 chromic. The skin was closed with gordo. The operative site was washed and dried. Dressing of Bactroban ointment folded 4 x 4 and Medipore tape was applied. The operative procedure was terminated at this point. The patient tolerated the anesthetic and procedure well without complication. There was no measurable blood loss. 3000 mL of IV fluid was administered. Urine output was 150 mL. The patient was transferred to the recovery room awake, extubated, and in stable condition. The surgical specimen was opened on the back table, confirming the presence of a very large polyp not amenable to endoscopic removal. The specimen was then submitted to pathology. Reviewed and electronically signed
[2020-03-04] MEDS: CEFOXITIN SODIUM 1 GM in DEXTROSE 5 % IN WATER 100 ML IV SCH ×4 (18:45→23:58)
[2020-03-05] MEDS: RINGER'S SOLUTION,LACTATED 1,000 ML IV PRN ×3 (05:08→21:21)
[2020-03-05] MEDS: CEFOXITIN SODIUM 1 GM in DEXTROSE 5 % IN WATER 100 ML IV SCH ×2 (06:06)
[2020-03-05] MEDS: BUPIVACAINE HCL/0.9 % NACL/PF 250 ML EP PRN ×2 (08:39→12:00)
--- NOTE | 2020-03-05 10:01 | PN ---
Subjective - Date and Time Seen Date: 03/05/20 Time: 09:59 Subjective Narrative: Patient is comfortable with indwelling thoracic epidural. He denies any complications. Objective - Vitals Vitals: Last Vital Signs Temp 37.2 C 03/05/20 07:44 Pulse 72 03/05/20 07:44 Resp 16 03/05/20 05:00 BP 146/95 H 03/05/20 07:44 Pulse Ox 99 03/05/20 07:44 Cauti Physician Documentation - Urinary Catheter Management Urethral (Cordova) Date of Insertion: 03/04/20 Time of Insertion: 12:40 Assessment/Plan Plan Narrative: Continue epidural at current settings.
[2020-03-05] MEDS: PANTOPRAZOLE SODIUM 40 MG in NORMAL SALINE 100 ML IV SCH ×2 (13:47→14:17)
[2020-03-05] MEDS ORDERED: oxyCODONE HCL/ACETAMINOPHEN 1 TAB TABLET PO ONE (16:11)
--- NOTE | 2020-03-05 18:42 | PN ---
Subjective - Date and Time Seen Date: 03/05/20 Time: 18:36 - second visit Subjective Narrative: POD #1 Right colon resection VS stable. Some numbness from epidural so rate decreased. Given po Percocet and able to ambulate. Filled up with clear liquids so will hold Objective - Review of Systems Generalized/Overall Review: Denies: Chills EENTM: Reports: Other - NG irritation Respiratory: Denies: Cough, Shortness of Breath Cardiac: Denies: Chest Pain Abdominal: Reports: Nausea Genitourinary Symptoms: Reports: No Symptoms Reported Musculoskeletal Complaints: Reports: No Symptoms Reported Neurological: Reports: No Symptoms Reported Skin: Reports: No Symptoms Reported Endocrine: Reports: No Symptoms Reported - Vitals Vitals: Last Vital Signs Temp 36.6 C 03/05/20 18:09 Pulse 67 03/05/20 18:09 Resp 20 03/05/20 18:09 BP 146/93 H 03/05/20 18:09 Pulse Ox 98 03/05/20 18:09 - Exam Constitutional: Present: Alert, Oriented x3, Cooperative, Well developed, Well nourished, Mild distress ENT Exam: Present: normal ENT inspection, other - NG good position Neck: Present: full range of motion, normal inspection Respiratory: Present: no respiratory distress Cardiovascular/Chest: Present: regular rate, rhythm, other Abdomen: Present: other - no bowel sounds /Rectal: Present: Exam deferred Extremity: Present: normal range of motion Skin Exam: Present: normal color 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 Encourage pulmonary toilet and ambulation
[2020-03-06] MEDS: RINGER'S SOLUTION,LACTATED 1,000 ML IV PRN ×2 (05:26→14:04)
--- NOTE | 2020-03-06 07:54 | PN ---
Subjective - Date and Time Seen Date: 03/06/20 Time: 07:30 Subjective Narrative: Patient is comfortable with indwelling thoracic epidural. He is ambulating well with the change in epidural setting. He denies any complications. Objective - Review of Systems Generalized/Overall Review: Reports: No Symptoms Reported - Vitals Vitals: Last Vital Signs Temp 36.6 C 03/06/20 06:44 Pulse 67 03/06/20 06:44 Resp 16 03/06/20 06:44 BP 137/84 03/06/20 06:44 Pulse Ox 98 03/06/20 06:44 - Exam Constitutional: Present: Alert, Oriented x3, Cooperative, No distress Cauti Physician Documentation - Urinary Catheter Management Urethral (Cordova) Date of Insertion: 03/04/20 Time of Insertion: 12:40 Assessment/Plan Plan Narrative: Continue epidural at current settings. Will discuss with Dr. Cooper about possibility of removing epidural later today or tomorrow.
[2020-03-06] MEDS: PANTOPRAZOLE SODIUM 40 MG in NORMAL SALINE 100 ML IV SCH (15:15)
--- NOTE | 2020-03-06 17:49 | PN ---
Subjective - Date and Time Seen Date: 03/06/20 Time: 17:40 - Second visit Subjective Narrative: He is POD 2 status post right colon resection for large polyp (pathology pending) He has been out of bed today ambulating and up to the bathroom. Has voided without the Cordova. Tolerating some liquids. Minimal NG output. He had bowel activity last night but not today yet. His pain is controlled currently with the epidural. Objective - Review of Systems Generalized/Overall Review: Denies: Chills, Fever EENTM: Reports: Other - NG discomfort, less Respiratory: Reports: Other - Using spirometer and Aaron. Denies: Cough, Shortness of Breath Cardiac: Denies: Chest Pain, Palpitations Abdominal: Reports: Other - Incisional discomfort. Denies: Nausea, Vomiting Genitourinary Symptoms: Reports: No Symptoms Reported Musculoskeletal Complaints: Reports: No Symptoms Reported Neurological: Reports: No Symptoms Reported Skin: Reports: No Symptoms Reported - Vitals Vitals: Last Vital Signs Temp 36.9 C 03/06/20 16:56 Pulse 52 L 03/06/20 16:56 Resp 20 03/06/20 16:56 BP 147/98 H 03/06/20 16:56 Pulse Ox 99 03/06/20 14:23 - Exam Constitutional: Present: Alert, Oriented x3, Cooperative, Well developed, Well nourished, No distress ENT Exam: Present: other - NG good position Neck: Present: normal inspection Respiratory: Present: no respiratory distress Cardiovascular/Chest: Present: regular rate, rhythm Abdomen: Present: other - Dressing dry. A little distended and tympanic but soft. A few bowel sounds /Rectal: Present: Exam deferred Extremity: Present: normal range of motion, no pedal edema, no calf tenderness Skin Exam: Present: normal color Neurologic: Present: hand laminator II-XII nml as tested, no motor/sensory deficits Appearance: Present: appropriate appearance, appropriate insight, neat, no memory impairment Eye contact: Present: cooperative, good eye contact, normal speech Thoughts: Present: normal thought pattern Cauti Physician Documentation - Urinary Catheter Management Urethral (Cordova) Cath placed during this visit: Yes at surgery Urethral Indwelling: Yes Reason for Continuing Indwelling Catheter: Measure accurate output Date of Insertion: 03/04/20 Time of Insertion: 12:40 Date of Removal: 03/06/20 Time of Removal: 10:30 Assessment/Plan Plan Narrative: His blood pressure was slightly higher today. Will cut his IV fluids back to TKO. Continue clear liquids and intermittent NG clamping. We will plan to remove the epidural catheter tomorrow and begin p.o. pain medication. Awaiting pathology report. Encourage ambulation and pulmonary toilet. - Problems/Diagnosis (1) S/P right colectomy Problem: Acute
[2020-03-06] MEDS: BUPIVACAINE HCL/0.9 % NACL/PF 250 ML EP PRN (19:47)
--- NOTE | 2020-03-07 07:56 | PN ---
Subjective - Date and Time Seen Date: 03/07/20 Time: 07:40 Subjective Narrative: Patient is comfortable with indwelling thoracic epidural. He denies any complications. Objective - Vitals Vitals: Last Vital Signs Temp 37.0 C 03/07/20 07:45 Pulse 72 03/07/20 07:45 Resp 16 03/07/20 07:45 BP 143/98 H 03/07/20 07:45 Pulse Ox 100 03/07/20 07:45 - Exam Constitutional: Present: Alert, Oriented x3, Cooperative, No distress Extremity: Present: normal range of motion Cauti Physician Documentation - Urinary Catheter Management Urethral (Cordova) Urethral Indwelling: Yes Date of Insertion: 03/04/20 Time of Insertion: 12:40 Date of Removal: 03/06/20 Time of Removal: 10:30 Assessment/Plan Plan Narrative: Will discontinue epidural today.
[2020-03-07] MEDS ORDERED: oxyCODONE HCL/ACETAMINOPHEN 1 TAB TABLET PO PRN (08:50)
[2020-03-07] MEDS ORDERED: FUROSEMIDE 10 MG/ML VIAL IV ONE (08:51)
--- NOTE | 2020-03-07 08:53 | PN ---
Subjective - Date and Time Seen Date: 03/07/20 Time: 08:53 - two visits today Subjective Narrative: He is POD 3 status post right colon resection for large polyp (pathology pending) He has been out of bed today ambulating. Has voided without the Cordova. Tolerating liquids. Minimal NG output. He had 4 stools today. The epidural is out and he states he does not need pain pill. Hypertensive even after decreasing IV and one dose of lasix. Incision clean. Showered and dressing changed Objective - Review of Systems Generalized/Overall Review: Denies: Chills, Fever EENTM: Reports: Other - NG discomfort. Denies: No Symptoms Reported Respiratory: Denies: Cough, Shortness of Breath Cardiac: Denies: Chest Pain, Palpitations Abdominal: Denies: Nausea, Vomiting Genitourinary Symptoms: Reports: No Symptoms Reported Musculoskeletal Complaints: Reports: No Symptoms Reported Neurological: Reports: No Symptoms Reported - Vitals Vitals: Last Vital Signs Temp 37.0 C 03/07/20 07:45 Pulse 72 03/07/20 07:45 Resp 16 03/07/20 07:45 BP 143/98 H 03/07/20 07:45 Pulse Ox 100 03/07/20 07:45 - Exam Constitutional: Present: Alert, Oriented x3, Cooperative, Well developed, Well nourished, No distress ENT Exam: Present: normal ENT inspection Neck: Present: normal inspection Respiratory: Present: no respiratory distress Cardiovascular/Chest: Present: regular rate, rhythm Abdomen: Present: other - still a little distended but soft incision clean /Rectal: Present: Exam deferred Skin Exam: Present: normal color Neurologic: Present: 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 Start Amlodipine 10mg po for hypertension and monitor response Await pathology
[2020-03-07] MEDS: POLYETHYLENE GLYCOL 3350 17 GM PACKET PO SCH (09:23)
[2020-03-07] MEDS: PANTOPRAZOLE SODIUM 40 MG in NORMAL SALINE 100 ML IV SCH (15:42)
[2020-03-07] MEDS: amLODIPine BESYLATE 10 MG TABLET PO SCH (18:53)
[2020-03-08] MEDS: amLODIPine BESYLATE 10 MG TABLET PO SCH (09:47)
[2020-03-08] MEDS: POLYETHYLENE GLYCOL 3350 17 GM PACKET PO SCH (09:48)
--- NOTE | 2020-03-08 11:13 | DS ---
(1) S/P right colectomy Diagnosis(s): Final pathology pending at the time of discharge Problem: Acute Date of Discharge:: 03/08/20 Hospital Course: He underwent an uneventful right colon resection on 03/04/2020. This revealed a very large cecal polyp. Pathology is pending at time of discharge. He received perioperative IV Mefoxin. SCDs and early ambulation were used for VTE prophylaxis. Nasogastric tube and Cordova catheter were placed at surgery. He was maintained on NG suction with IV fluids until return of bowel function. SCDs and early ambulation were his for VTE prophylaxis. He tolerated NG tube clamping and liquids. The tube was removed and the diet advanced which he tolerated. His incision evidence of good healing. His activity gradually increased and he was able to ambulate without assistance. He did evidence hypertension which responded to amlodipine 10 mg p.o. daily. By the fourth postoperative day his vital signs were stable. He was ambulating without assistance. His incision appeared to be clean and healing well. He was tolerating a regular diet and had bowel movements. He was discharged home with instructions not to lift and not to drive. He is to keep his incision dry and covered but may shower and change the dressing daily or as needed. A prescription for amlodipine 10 mg p.o. daily was transmitted electronically. He has phone numbers to call for questions or concerns. He is to call the office Tuesday to arrange a first postoperative visit. Procedures Performed: see notes below - Right colectomy Results and Findings: Lab Pending Results 03/04/20 14:38: Pathology Specimen Spec to path Final pathology report on the resected specimen was still pending at the time of discharge Discharge Location: Home Disposition: Home self-care Condition: Good Discharge Activity: Activity as tolerated, No Lifting Discharge Diet: General/regular food Referrals: Gregor Blood DO [Primary Care Provider] - Prescriptions (Any new or edited meds): amLODIPine BESYLATE [Norvasc] 10 mg PO DAILY #14 tab Transmission Status: Sent to [facility], [place], [place] Complete Home Medications List: Complete Home Medication List: Polyethylene Glycol 3350 [Miralax] 17 gm PO DAILY packet 03/08/20 amLODIPine BESYLATE [Norvasc] 10 mg PO DAILY #14 tab 03/08/20 Forms: Patient Portal Registration
[2020-03-08 11:58] VITALS: BP 139/91
== END 2020-03-08 12:30 | disposition home or self-care (01) | DRG 331 ==
LOC: MS 09:20
PROVIDERS: ADMIT Surgery; ATTEND Surgery